=== PATIENT | male | born 1950 | race Caucasian/White ===

== ENCOUNTER 2016-10-21 11:27 | Emergency (ER) | payer SELFPAY ==
[2016-10-21] MEDS ORDERED: LIDOCAINE 1% INJ-PF (10 MG/ML) 30 ML SDV INJ ONE (12:36)
[2016-10-21] MEDS ORDERED: DIPH/PERTUSS(ACELL)/TETANUS VAC/PF 0.5 ML SYR (>=10YO) IM ONE (12:36)
--- NOTE | 2016-10-21 12:38 | ER Document Report ---
HPI - HPI Patient complains to provider of: finger injury Onset: Just prior to arrival Onset/Duration: Sudden Quality of pain: Achy Pain Level: 1 Context: Pt was holding onto a pipe while his friend was using a gear and spline grinder to cut through the material. States that the gear and spline grinder cut through his right third fingertip. Patient complains of laceration to the distal tip of right finger. Associated Symptoms: Other - Laceration Exacerbated by: Movement Relieved by: Denies Similar symptoms previously: No Recently seen / treated by doctor: No - ROS ROS below otherwise negative: Yes Systems Reviewed and Negative: Yes All other systems reviewed and negative - CONSTITUTIONAL Constitutional: DENIES: Fever - NEURO Neurology: DENIES: Weakness - GASTROINTESTINAL Gastrointestinal: DENIES: Nausea - MUSCULOSKELETAL Musculoskeletal: REPORTS: Extremity pain - Right third finger - DERM Skin Color: Normal Skin Problems: Laceration Past Medical History - General Information source: Patient - Social History Smoking Status: Never Smoker Chew tobacco use (# tins/day): No Frequency of alcohol use: None Drug Abuse: None Occupation: none Family History: Reviewed & Not Pertinent Patient has suicidal ideation: No Patient has homicidal ideation: No - Past Medical History Cardiac Medical History: Reports: Hx Hypertension Renal/ Medical History: Denies: Hx Peritoneal Dialysis Past Surgical History: Reports: Hx Coronary Artery Bypass Graft Vertical Provider Document - CONSTITUTIONAL Agree With Documented VS: Yes Exam Limitations: No Limitations General Appearance: WD/WN, No Apparent Distress - INFECTION CONTROL TRAVEL OUTSIDE OF THE [place] IN LAST 30 DAYS: No - HEENT HEENT: Atraumatic, Normocephalic - NECK Neck: Normal Inspection - RESPIRATORY Respiratory: No Respiratory Distress O2 Sat by Pulse Oximetry: 99 - CARDIOVASCULAR Pulses: Normal: Radial - MUSCULOSKELETAL/EXTREMETIES Musculoskeletal/Extremeties: MAEW - NEURO Level of Consciousness: Awake, Alert, Appropriate Motor/Sensory: No Motor Deficit - DERM Integumentary: Warm, Dry, Laceration - 1.2 cm laceration over the dorsal aspect of right third finger involving the nail. Course - Vital Signs Vital signs: Temp Pulse Resp BP Pulse Ox 98.2 F 80 20 173/85 H 99 10/21/16 11:37 10/21/16 11:37 10/21/16 11:37 10/21/16 11:37 10/21/16 11:37 - Diagnostic Test Radiology reviewed: Image reviewed, Reports reviewed Procedures - Immobilization Right 3rd digit Pre-Proc Neuro Vasc Exam: Normal Immobilizer type: Finger splint (Static) Performed by: PCT Post-Proc Neuro Vasc Exam: Normal Alignment checked and good: Yes - Laceration/Wound Repair Right 3rd digit Wound length (cm): 2 Wound's Depth, Shape: Linear Anesthetic type: 1% Lidocaine Wound explored: Clean Wound Repaired With: Sutures Suture Size/Type: 5:0, Nylon Number of Sutures: 3 Layer Closure?: No Post-procedure wound care: Sterile dressing applied, Splint applied Post-procedure NV exam normal: Yes Complications: No Discharge - Discharge Clinical Impression: Finger laceration Qualifiers: Encounter type: initial encounter Finger: middle finger Damage to nail status: with damage Foreign body presence: without foreign body Laterality: right Qualified Code(s): S61.312A - Laceration without foreign body of right middle finger with damage to nail, initial encounter Fracture, finger, distal phalanx, open Qualifiers: Encounter type: initial encounter Finger: middle finger Fracture alignment: nondisplaced Laterality: right Qualified Code(s): S62.662B - Nondisplaced fracture of distal phalanx of right middle finger, initial encounter for open fracture Condition: Stable Disposition: HOME, SELF-CARE Instructions: Oral Narcotic Medication ([facility]), Tetanus Immunization Given ([facility]) , Prophylactic Antibiotic ([facility]), Laceration Care ([facility]), Splint Precautions ([facility]) Additional Instructions: Return immediately for any new or worsening symptoms Followup with your primary care provider, call tomorrow to make a followup appointment Follow-up with orthopedic doctor for further evaluation, call Monday morning for an appointment Suture removal in 9 days. Prescriptions: Cephalexin Monohydrate [Keflex 500 mg Capsule] 500 mg PO Q6H 5 Days Ondansetron HCl [Zofran 4 mg Tablet] 1 - 2 tab PO Q6 PRN #15 tablet PRN Reason: Oxycodone HCl/Acetaminophen [Percocet 5-325 mg Tablet] 1 - 2 tab PO ASDIR PRN # 15 tablet PRN Reason: Referrals: [facility] [Provider Group] - Follow up as needed
[2016-10-21] MEDS ORDERED: CEFAZOLIN 1 GM/D5W RTU 50 ML IV ONE (13:02)
--- NOTE | 2016-10-21 13:05 | RADIOLOGY REPORT (SQ) ---
EXAM DESCRIPTION: FINGER RIGHT COMPLETED DATE/TIME: 10/21/2016 12:51 pm REASON FOR STUDY: lac across nail from diamond grinder COMPARISON: None. NUMBER OF VIEWS: Three views. TECHNIQUE: AP, lateral, and oblique images acquired of the right third finger. LIMITATIONS: None. FINDINGS: MINERALIZATION: Normal. BONES: There is a slightly oblique fracture involving the distal end of the distal phalanx of the 3rd digit. No other evidence for fracture is seen. SOFT TISSUES: There is associated soft tissue injury. OTHER: No other significant finding. IMPRESSION: Slightly oblique fracture involving the distal end of the distal phalanx of the 3rd digi t. COMMENT: SITE OF TRAUMA/COMPLAINT MARKED/STAMP COMPLETED: Yes TECHNICAL DOCUMENTATION: JOB ID: [id number] [employer]- All Rights Reserved
[2016-10-21 15:03] VITALS: BP 184/84
== END 2016-10-21 15:03 | disposition home or self-care (01) ==
LOC: ER 11:27
DX: S69.91XA Unspecified injury of right wrist, hand and finger(s), initial encounter (principal); I10 Essential (primary) hypertension; W29.8XXA Contact with other powered hand tools and household machinery, initial encounter; Z23 Encounter for immunization
CPT/HCPCS: 99283; 90471; 96365; 73140; 90715; J0690; J3490